=== PATIENT | male | born 1945 | race Hispanic/Latino ===

== ENCOUNTER 2024-07-06 14:02 | Emergency (ER) | payer OTHER ==
[~2024-07-06] VITALS: Ht 165.1 cm; Wt 103.9 kg
[2024-07-06 15:26] LABS: APPEARANCE,URINE CLEAR (CLEAR); BILIRUBIN,URINE NEGATIVE (NEGATIVE); COLOR,URINE LIGHT-YELLOW (YELLOW); GLUCOSE, URINE (UA) NEGATIVE (NEGATIVE); KETONES,URINE NEGATIVE (NEGATIVE); LEUKOCYTE ESTERASE ,URINE 75 Leu/uL (NEGATIVE); NITRATE,URINE NEGATIVE (NEGATIVE); OCCULT BLOOD,URINE SMALL (NEGATIVE); PROTEIN,URINE NEGATIVE (NEGATIVE); UROBILINOGEN,URINE 0.2 mg/dL (0.2-1.0)
[2024-07-06 15:29] LABS: MUCUS,URINE RARE LPF (None Seen); SQUAMOUS EPITHELIAL CELL,UR RARE /HPF (0-2)
[2024-07-06] MEDS ORDERED: CLOT15CR23 TP (15:33)
--- NOTE | 2024-07-06 15:33 | ERN ---
General Chief Complaint: Penis Problem Stated Complaint: PENILE PAIN Time Seen by MD: 14:17 Time Seen by Midlevel: 14:17 Source: patient History of Present Illness Initial Comments 78-year-old male who presents to the emergency department due to penile discomfort. Patient reports he noticed some lesions to the penile head. Patient states he was last sexually active for years ago. Denies any penile discharge, testicular pain, dysuria or further associated symptoms. Home Meds Active Scripts Cephalexin (Cephalexin) 500 Mg Tablet, 1 TAB PO BID for 7 Days, #14 TAB 0 Refills Prov:LAYTON LLANOS 07/06/24 Clotrimazole (Clotrimazole) 1 % Cream..g., 1 APPL TP BID for 7 Days, #30 GM 0 Refills apply to affected area(s) Prov:LAYTON LLANOS 07/06/24 Past Medical History Past Medical History: High Cholesterol, Hypertension Past Surgical History: None ROS Dictation Constitutional: Negative for fever,chills, and weight loss Eyes: Negative for injury, pain,redness, and discharge ENT: Negative for injury,pain or swelling Cardiovascular: Negative for chest pain, palpitations, and edema Respiratory: Negative for shortness of breath, cough, and wheezing, Abdomen/GI: Negative for abdominal pain, nausea, vomiting, diarrhea, and const ipation Back: Negative for injury and pain : Positive for penile discomfort, lesions Negative for painful urination, bleeding or discharge MS/Extremity: Negative for injury and deformity Skin: Negative for rash, and discoloration Neuro: Negative for headache, weakness, numbness, tingling, and seizure Psych: Negative for suicide ideation, homicidal ideation, and hallucinations Physical Exam Physical Exam Dictation General: awake, alert, no acute distress Head/Face: Normocephalic, atraumatic Eyes: PERRL, EOMI, normal conjunctiva ENT: oral cavity clear, oral mucosa moist Neck: Supple, normal range of motion Cardiovascular: RRR, normal S1/S2 Respiratory: CTAB, no respiratory distress Abdomen: Soft, non-tender, non-distended, no guarding or rebound. : Normal testicular examination nontender, uncircumcised, vesicular lesions noted to the top aspect of the penile head Skin: Warm, dry, normal turgor, no rash MS/Extremity: Pulses equal, no cyanosis, neurovascular intact, FROM Neuro: COAx4, GCS 15, strength 5/5, CN 2-12 intact, normal cerebellar exam, normal gait Psych: Normal behavior, mood, and affect normal Results Laboratory and Microbiology Lab and Micro Result Laboratory Tests Test 07/06/24 15:00 Urine Color LIGHT-YELLOW (YELLOW) Urine Appearance CLEAR (CLEAR) Urine pH 5.0 (5.0-8.0) Urine Specific [place] 1.021 (1.001-1.031) Urine Protein NEGATIVE mg/dL (NEGATIVE) Urine Glucose (UA) NEGATIVE mg/dL (NEGATIVE) Urine Ketones NEGATIVE mg/dL (NEGATIVE) Urine Occult Blood SMALL (NEGATIVE) H Urine Nitrate NEGATIVE (NEGATIVE) Urine Bilirubin NEGATIVE mg/dL (NEGATIVE) Urine Urobilinogen 0.2 mg/dL (0.2-1.0) Urine Leukocyte Esterase 75 Nelson/uL (NEGATIVE) H Urine RBC 2-5 /HPF (0-1) H Urine WBC 11-25 /HPF (0-1) H Urine Squamous Epithelial Cells RARE /HPF (0-2) Urine Bacteria None /HPF (None Seen) Labs Reviewed?: Yes MDM MDM: Differential diagnosis: Gonorrhea, chlamydia, UTI Rationale: 78-year-old male who presents to the emergency department due to penile discomfort. Patient reports he noticed some lesions to the penile head. Patient states he was last sexually active for years ago. Denies any penile discharge, testicular pain, dysuria or further associated symptoms. UA obtained shows leukocytes and WBCs therefore patient prescribed antibiotics for outpatient treatment. Per physical examination patient has normal testicular examination nontender, uncircumcised, vesicular lesions noted to the top aspect of the penile head. Gonorrhea chlamydia PCR pending. Patient was educated on findings and diagnosis. Advised to follow up with PCP referred to urologist. Return to the emergency department if any worsening symptoms. Patient verbalized understanding. Patient stable for discharge. There are no social concerns with this patient. I independently interpreted the test that were performed, results were reviewed by me and considered findings on radiology if ordered. Medical management and examination interpretation discussions were had by me with other qualified healthcare professionals as indicated for the patient's care. ED Course Orders Procedure Category Date Status Time Urinalysis LAB 07/06/24 Complete W/Microscopic 14:57 Chlamydia & Gc Pcr FATOU 07/06/24 In Process 14:57 Culture Urine FATOU 07/06/24 In Process 15:27 Vital Signs Date Time Temp Pulse Resp B/P (MAP) Pulse Ox O2 Delivery O2 Flow Rate FiO2 07/06/24 15:57 98.1 62 18 151/69 99 Room Air* 0 21 07/06/24 14:09 98.1 66 18 165/73 96 DX & DISP Disposition: Discharge Departure Impression: Primary Impression: Genital candidiasis in male Additional Impression: Cystitis Condition: Stable Scripts Cephalexin (Cephalexin) 500 Mg Tablet 1 TAB PO BID for 7 Days, #14 TAB 0 Refills Prov: LAYTON LLANOS 07/06/24 Clotrimazole (Clotrimazole) 1 % Cream..g. 1 APPL TP BID for 7 Days, #30 GM 0 Refills apply to affected area(s) Prov: LAYTON LLANOS 07/06/24 Additional Instructions: Discharge home. Rest. Follow up with primary care Dr. in 24 hours. Return to the ER for any acute changes or worsening symptoms. If any medications were prescribed take as directed. Okay to continue home medications unless otherwise discussed during your visit in the emergency room today. Patient was also advised to follow-up with primary care physician in 1 to 2 days for continued monitoring. Referrals: CALLIE PEREZ MD I performed the substantive portion of the visit. I have reviewed and personally made and approve the management plan that is documented in the notes by myself or the POOJA. I acknowledge full responsibility for the patient's management plan. LAYTON LLANOS Jul 06, 2024 15:33
[2024-07-06] MEDS ORDERED: CEPH500T PO (15:39)
[2024-07-06 15:57] VITALS: BP 151/69; PULSE 62; RESP 18; TEMP 98.1; O2SAT 99
== END 2024-07-06 15:48 | disposition home or self-care (01) ==
LOC: EDH 14:02
DX: B37.9 Candidiasis, unspecified (principal); N30.90 Cystitis, unspecified without hematuria; E78.00 Pure hypercholesterolemia, unspecified; I10 Essential (primary) hypertension
CPT/HCPCS: 81001; 87086; 87491; 87591; 99283